=== PATIENT | female | born 1990 | race Caucasian/White ===

== ENCOUNTER 2025-08-14 15:55 | Outpatient (CLI) | payer OTHER ==
[2025-08-14 16:25] LABS: Cocaine Metabolite Screen Negative (Negative); THC/Cannabinoid Screen Negative (Negative); Tricyclic Screen Negative (Negative)
== END 2025-08-14 15:56 | disposition home or self-care (01) ==
LOC: MADLAB 15:55
PROVIDERS: ATTEND Pathology Anatomic Pathology & Clinical Pathology
DX: Z00.00 Encounter for general adult medical examination without abnormal findings (principal)
CPT/HCPCS: 80306